=== PATIENT | male | born 1935 | race Caucasian/White ===

== ENCOUNTER 2019-07-08 05:45 | Inpatient (IN) ==
[2019-07-08] MEDS ORDERED: Ipratropium/Albuterol Neb 3 ML ONE (05:55)
[2019-07-08] MEDS ORDERED: Ipratropium/Albuterol Neb 3 ML IH ONE (06:00)
[2019-07-08] MEDS ORDERED: methylPREDNISolone 125 MG/2 ML VIAL IVP ONE (06:00)
[2019-07-08 06:51] LABS: Basophils # 0.1 K/mcL (0.0-0.2); Basophils % 0.9 %; Eosinophils # 0.1 K/mcL (0.0-0.6); Eosinophils % 0.8 %; Hematocrit 51.8 % (37.5-50.1); Immature Granulocytes % 1.3 % (0-4); Lymphocytes # 1.3 K/mcL (0.6-4.6); Lymphocytes % 12.7 %; Mean Corpuscular HGB Conc 32.8 g/dL (31.6-35.5); Mean Corpuscular Hemoglobin 33.1 pg (28.0-33.3); Mean Platelet Volume 9.3 fL (9.4-12.4); Monocytes # 0.8 K/mcL (0.0-1.3); Monocytes % 8.1 %; Neutrophils # 7.7 K/mcL (1.6-8.9); Platelet Count 226 K/mcL (140-400); Red Blood Count 5.13 M/mcL (4.19-5.50); Segmented Neutrophils % 76.2 %; White Blood Count 10.1 K/mcL (4.3-11.1)
[2019-07-08 07:17] LABS: Calcium 9.6 mg/dL (8.6-10.3); Potassium 5.6 mEq/L (3.5-5.1); Troponin I 0.32 ng/mL (< 0.04)
[2019-07-08 10:09] LABS: Prothrombin Time 11.2 Seconds (9.4-12.1)
[2019-07-08] MEDS ORDERED: *HR* Heparin 5,000 UNIT/ML VIAL IVP ONE (11:30)
[2019-07-08] MEDS ORDERED: *HR* Heparin 5,000 UNIT/ML VIAL IVP PRN ×2 (11:30)
[2019-07-08] MEDS ORDERED: *HR* Heparin 10,000 UNIT/10 ML VIAL IV PRN (11:55)
[2019-07-08] MEDS ORDERED: 0.9 % Sodium Chloride 250 ML IVC PRN (11:55)
[2019-07-08] MEDS ORDERED: Aspirin 81 MG TAB.CHEW PO ONE (11:56)
[2019-07-08] MEDS ORDERED: 0.9 % Sodium Chloride 1,000 ML PRIME SCH (12:00)
[2019-07-08 12:08] LABS: Activated Partial Thrombo Time 31.8 Seconds (26.0-36.0)
[2019-07-08 12:09] LABS: Hepatitis B Surface Antibody < 3.10 mIU/mL
[2019-07-08 12:19] LABS: Hepatitis B Surface Antigen Nonreactive (Nonreactive)
[2019-07-08] MEDS: Heparin 25,000 UNIT/250 ML D5W 25,000 UNIT/250 ML IV.SOLN IVC SCH (12:23)
[2019-07-08] MEDS ORDERED: Latanoprost 2.5 ML BOTTLE BOTH EYES SCH (17:00)
[2019-07-08] MEDS: Sucralfate 1 GM TABLET PO SCH ×2 (17:26→23:00)
[2019-07-08] MEDS ORDERED: carvediloL 25 MG TABLET PO SCH (21:00)
[2019-07-08] MEDS ORDERED: Perflutren Lipid Microsphere 1.3 ML in 0.9 % Sodium Chloride 8.7 ML IVP ONE (21:47)
[2019-07-08] MEDS: Latanoprost 2.5 ML BOTTLE BOTH EYES SCH (23:01)
[2019-07-09 00:41] LABS: Basophils % 0.5 %; Hematocrit 47.7 % (37.5-50.1); Hemoglobin 15.8 g/dL (12.9-16.9); Lymphocytes # 0.6 K/mcL (0.6-4.6); Mean Corpuscular HGB Conc 33.1 g/dL (31.6-35.5); Mean Corpuscular Hemoglobin 33.1 pg (28.0-33.3); Mean Platelet Volume 9.6 fL (9.4-12.4); Monocytes # 0.5 K/mcL (0.0-1.3); Monocytes % 7.4 %; Platelet Count 195 K/mcL (140-400); Red Blood Count 4.77 M/mcL (4.19-5.50); Segmented Neutrophils % 81.1 %; White Blood Count 6.2 K/mcL (4.3-11.1)
[2019-07-09] MEDS: Levalbuterol Neb 1.25 MG/3 ML IH SCH ×5 (00:54→21:58)
[2019-07-09 01:02] LABS: Potassium 5.4 mEq/L (3.5-5.1); Troponin I 0.62 ng/mL (< 0.04)
[2019-07-09 01:08] LABS: Calcium 9.1 mg/dL (8.6-10.3)
[2019-07-09] MEDS ORDERED: 0.9 % Sodium Chloride 250 ML IVC PRN (09:28)
[2019-07-09] MEDS: Sucralfate 1 GM TABLET PO SCH ×3 (09:30→17:34)
[2019-07-09] MEDS: carvediloL 25 MG TABLET PO SCH ×2 (09:35→17:34)
[2019-07-09] MEDS: Aspirin 81 MG TAB.CHEW PO SCH (09:35)
[2019-07-09 10:27] LABS: Acinetobacter baumannii by PCR Not Detected (Not Detect); Candida albicans by PCR Not Detected (Not Detect); Candida glabrata by PCR Not Detected (Not Detect); Candida krusei by PCR Not Detected (Not Detect); Candida parapsilosis by PCR Not Detected (Not Detect); Candida tropicalis by PCR Not Detected (Not Detect); Enterobacter cloacae Cmplx PCR Not Detected (Not Detect); Enterobacteriaceae by PCR Not Detected (Not Detect); Enterococcus by PCR Not Detected (Not Detect); Escherichia coli by PCR Not Detected (Not Detect); Klebsiella oxytoca by PCR Not Detected (Not Detect); Klebsiella pneumoniae by PCR Not Detected (Not Detect); Proteus by PCR Not Detected (Not Detect); Pseudomonas aeruginosa by PCR Not Detected (Not Detect); Serratia marcescens by PCR Not Detected (Not Detect); Staphylococcus aureus by PCR Not Detected (Not Detect); Staphylococcus by PCR DETECTED (Not Detect); Streptococcus agalactiae(B)PCR Not Detected (Not Detect); Streptococcus by PCR Not Detected (Not Detect); Streptococcus pneumoniae PCR Not Detected (Not Detect); Streptococcus pyogenes (A) PCR Not Detected (Not Detect); blaKPC Carbapenem-Resist Gene Not Detected (Not Detect); mecA Methicillin-Resist Gene DETECTED (Not Detect); vanA/B Vancomycin-Resist Genes Not Detected (Not Detect)
[2019-07-09] MEDS ORDERED: *HR* Dextrose 50 % in Water (Syg) 50 ML SYRINGE IVP PRN (12:10)
[2019-07-09] MEDS ORDERED: D5% in Water 1,000 ML IVC PRN (12:10)
[2019-07-09] MEDS ORDERED: Dextrose Gel 15 GM/37.5 ML TUBE PO PRN ×2 (12:10)
[2019-07-09] MEDS: Heparin 25,000 UNIT/250 ML D5W 25,000 UNIT/250 ML IV.SOLN IVC SCH (12:59)
[2019-07-09] MEDS: Insulin LISPRO 300 UNITS/3 ML VIAL SQ SCH ×2 (17:34→21:16)
[2019-07-09 19:00] LABS: Adenovirus Not Detected (Not Detect); Coronavirus 229E Not Detected (Not Detect); Coronavirus HKU1 Not Detected (Not Detect); Coronavirus NL63 Not Detected (Not Detect); Coronavirus OC43 Not Detected (Not Detect); Human Metapneumovirus Not Detected (Not Detect); Human Rhinovirus/Enterovirus Not Detected (Not Detect)
[2019-07-09 19:21] LABS: Bordetella Pertussis Not Detected (Not Detect); Chlamydophila pneumoniae Not Detected (Not Detect); Influenza A Subtype 2009 H1 DETECTED (Not Detect); Influenza B Not Detected (Not Detect); Mycoplasma pneumoniae Not Detected (Not Detect); Parainfluenza Virus 1 Not Detected (Not Detect); Parainfluenza Virus 2 Not Detected (Not Detect); Parainfluenza Virus 3 Not Detected (Not Detect); Parainfluenza Virus 4 Not Detected (Not Detect); Respiratory Syncytial Virus Not Detected (Not Detect)
[2019-07-09] MEDS: Diltiazem SR (12hr) 60 MG CAPSULE PO SCH (21:16)
[2019-07-09] MEDS: Insulin DETEMIR 100 UNIT/ML X5UNITS SQ SCH (21:16)
[2019-07-09] MEDS: Latanoprost 2.5 ML BOTTLE BOTH EYES SCH (21:18)
[2019-07-10 00:48] LABS: Hematocrit 47.3 % (37.5-50.1); Hemoglobin 15.6 g/dL (12.9-16.9); Mean Corpuscular Hemoglobin 33.3 pg (28.0-33.3); Mean Corpuscular Volume 101.1 fL (83.0-100.0); Mean Platelet Volume 9.7 fL (9.4-12.4); Platelet Count 186 K/mcL (140-400); Red Blood Count 4.68 M/mcL (4.19-5.50); Red Cell Distribution Width 14.2 % (11.5-14.5)
[2019-07-10 00:50] LABS: White Blood Count 9.8 K/mcL (4.3-11.1)
[2019-07-10 02:02] LABS: Calcium 8.7 mg/dL (8.6-10.3); Potassium 4.9 mEq/L (3.5-5.1)
[2019-07-10] MEDS: Levalbuterol Neb 1.25 MG/3 ML IH SCH ×4 (03:52→22:06)
[2019-07-10] MEDS: Aspirin 81 MG TAB.CHEW PO SCH (08:14)
[2019-07-10] MEDS: Insulin LISPRO 300 UNITS/3 ML VIAL SQ SCH ×4 (08:14→22:25)
[2019-07-10] MEDS: Sucralfate 1 GM TABLET PO SCH ×3 (08:14→16:59)
[2019-07-10] MEDS ORDERED: 0.9 % Sodium Chloride 250 ML IVC PRN (08:16)
[2019-07-10] MEDS: carvediloL 25 MG TABLET PO SCH ×2 (13:56→16:59)
[2019-07-10] MEDS: Heparin 25,000 UNIT/250 ML D5W 25,000 UNIT/250 ML IV.SOLN IVC SCH (17:00)
[2019-07-10] MEDS: Diltiazem SR (12hr) 60 MG CAPSULE PO SCH (23:26)
[2019-07-10] MEDS: Insulin DETEMIR 100 UNIT/ML X5UNITS SQ SCH (23:26)
[2019-07-10] MEDS: Latanoprost 2.5 ML BOTTLE BOTH EYES SCH (23:27)
[2019-07-11] MEDS: Levalbuterol Neb 1.25 MG/3 ML IH SCH ×4 (03:26→21:36)
[2019-07-11 04:39] LABS: Hematocrit 46.8 % (37.5-50.1); Hemoglobin 15.5 g/dL (12.9-16.9); Mean Corpuscular HGB Conc 33.1 g/dL (31.6-35.5); Mean Corpuscular Hemoglobin 33.3 pg (28.0-33.3); Mean Corpuscular Volume 100.6 fL (83.0-100.0); Mean Platelet Volume 10.1 fL (9.4-12.4); Platelet Count 161 K/mcL (140-400); Red Blood Count 4.65 M/mcL (4.19-5.50); Red Cell Distribution Width 14.3 % (11.5-14.5); White Blood Count 7.9 K/mcL (4.3-11.1)
[2019-07-11 04:58] LABS: Calcium 8.6 mg/dL (8.6-10.3); Potassium 4.3 mEq/L (3.5-5.1)
[2019-07-11] MEDS ORDERED: Perflutren Lipid Microsphere 1.3 ML in 0.9 % Sodium Chloride 8.7 ML IVP ONE (08:50)
[2019-07-11] MEDS: Aspirin 81 MG TAB.CHEW PO SCH (08:54)
[2019-07-11] MEDS: Insulin LISPRO 300 UNITS/3 ML VIAL SQ SCH ×4 (08:55→22:00)
[2019-07-11] MEDS: Sucralfate 1 GM TABLET PO SCH ×3 (08:55→17:17)
[2019-07-11] MEDS: carvediloL 25 MG TABLET PO SCH ×2 (08:55→17:17)
[2019-07-11] MEDS: *HR* Heparin 5,000 UNIT/ML VIAL SQ SCH (17:17)
[2019-07-11] MEDS: Insulin DETEMIR 100 UNIT/ML X5UNITS SQ SCH (22:00)
[2019-07-11] MEDS: Latanoprost 2.5 ML BOTTLE BOTH EYES SCH (22:00)
[2019-07-11] MEDS: Diltiazem SR (12hr) 60 MG CAPSULE PO SCH (22:00)
[2019-07-12] MEDS: Levalbuterol Neb 1.25 MG/3 ML IH SCH ×3 (03:40→16:05)
[2019-07-12 04:46] LABS: Hematocrit 46.8 % (37.5-50.1); Hemoglobin 15.3 g/dL (12.9-16.9); Mean Corpuscular HGB Conc 32.7 g/dL (31.6-35.5); Mean Corpuscular Hemoglobin 33.8 pg (28.0-33.3); Mean Corpuscular Volume 103.3 fL (83.0-100.0); Mean Platelet Volume 9.6 fL (9.4-12.4); Platelet Count 148 K/mcL (140-400); Red Blood Count 4.53 M/mcL (4.19-5.50); White Blood Count 6.7 K/mcL (4.3-11.1)
[2019-07-12 04:54] LABS: Calcium 8.7 mg/dL (8.6-10.3); Potassium 5.3 mEq/L (3.5-5.1)
[2019-07-12] MEDS: *HR* Heparin 5,000 UNIT/ML VIAL SQ SCH (06:17)
[2019-07-12] MEDS: Aspirin 81 MG TAB.CHEW PO SCH (08:05)
[2019-07-12] MEDS: carvediloL 25 MG TABLET PO SCH (08:05)
[2019-07-12] MEDS: Sucralfate 1 GM TABLET PO SCH ×2 (08:05→13:47)
[2019-07-12] MEDS: Insulin LISPRO 300 UNITS/3 ML VIAL SQ SCH ×2 (08:06→13:47)
[2019-07-12] MEDS ORDERED: *HR* Heparin 10,000 UNIT/10 ML VIAL IV PRN (08:18)
[2019-07-12] MEDS ORDERED: 0.9 % Sodium Chloride 250 ML IVC PRN (08:18)
[2019-07-12] MEDS ORDERED: 0.9 % Sodium Chloride 1,000 ML PRIME SCH (08:30)
[2019-07-12] MEDS ORDERED: Albumin 25% 25gram/100mL 25 GM/100 ML IV.SOLN IVPB STA (10:13)
[2019-07-12] MEDS ORDERED: Albumin 25% 25gram/100mL 25 GM/100 ML IV.SOLN ONE (10:16)
[2019-07-12] MEDS ORDERED: Ondansetron ODT 4 MG TAB.RAPDIS SL PRN (16:18)
[2019-07-12 16:40] VITALS: BP 101/61
== END 2019-07-12 17:36 | disposition home or self-care (01) | DRG 280 ==
LOC: 2ANU 05:45 → EMEROOARM 05:45 → SUATTDRO 11:28 → 2ANU 12:49
PROVIDERS: ADMIT Internal Medicine; ATTEND Internal Medicine

== ENCOUNTER 2019-08-06 22:01 | Inpatient (IN) ==
[2019-08-06] MEDS ORDERED: Ipratropium/Albuterol Neb 3 ML IH ONE (22:19)
[2019-08-06] MEDS ORDERED: methylPREDNISolone 125 MG/2 ML VIAL IVP ONE (22:19)
[2019-08-06 22:56] LABS: Basophils % 0.2 %; Eosinophils # 0.1 K/mcL (0.0-0.6); Eosinophils % 0.5 %; Hematocrit 46.2 % (37.5-50.1); Hemoglobin 15.3 g/dL (12.9-16.9); Lymphocytes # 2.4 K/mcL (0.6-4.6); Lymphocytes % 18.5 %; Mean Corpuscular HGB Conc 33.1 g/dL (31.6-35.5); Mean Corpuscular Hemoglobin 33.4 pg (28.0-33.3); Mean Corpuscular Volume 100.9 fL (83.0-100.0); Mean Platelet Volume 10.3 fL (9.4-12.4); Monocytes % 7.8 %; Neutrophils # 9.3 K/mcL (1.6-8.9); Platelet Count 167 K/mcL (140-400); Red Blood Count 4.58 M/mcL (4.19-5.50); Red Cell Distribution Width 14.4 % (11.5-14.5)
[2019-08-06 23:06] LABS: Prothrombin Time 10.8 Seconds (9.4-12.1)
[2019-08-06 23:08] LABS: Activated Partial Thrombo Time 28.3 Seconds (26.0-36.0)
[2019-08-06 23:20] LABS: Troponin I 0.17 ng/mL (< 0.04)
[2019-08-06 23:42] LABS: Albumin/Globulin Ratio 1.6 (1.1-2.2); Bilirubin,Total 0.4 mg/dL (0.3-1.0); Calcium 9.1 mg/dL (8.6-10.3); Globulin 2.5 g/dL (2.4-3.5); Potassium 6.2 mEq/L (3.5-5.1); Total Protein 6.5 g/dL (6.4-8.9)
[2019-08-07] MEDS ORDERED: Aspirin 81 MG TAB.CHEW PO ONE (01:00)
[2019-08-07] MEDS ORDERED: Piperacillin/Tazobactam 3.375 GM in 0.9 % Sodium Chloride Mini Bag 100 ML IVPB ONE (01:00)
[2019-08-07] MEDS ORDERED: Vancomycin 1,000 MG in D5% in Water 250 ML IVPB ONE (01:00)
[2019-08-07] MEDS ORDERED: cefTRIAXone 1,000 MG in 0.9 % Sodium Chloride Mini Bag 100 ML IVPB ONE (01:00)
[2019-08-07] MEDS ORDERED: *HR* OxyCODONE Immed Rel 5 MG TABLET PO ONE (01:16)
[2019-08-07] MEDS ORDERED: Insulin Human Regular 10 UNIT in 0.9 % Sodium Chloride 10 ML IV ONE (01:32)
[2019-08-07] MEDS ORDERED: *HR* Dextrose 50 % in Water (Syg) 50 ML SYRINGE IVP ONE (01:32)
[2019-08-07] MEDS ORDERED: *HR* Dextrose 50 % in Water (Syg) 50 ML SYRINGE ONE (01:56)
[2019-08-07] MEDS ORDERED: Calcium Gluconate 1gm/50mL 1 GM/50 ML BAG IVPB ONE ×2 (01:56→02:00)
[2019-08-07] MEDS ORDERED: Nitroglycerin 0.4 MG TAB.SUBL SL PRN (03:12)
[2019-08-07] MEDS ORDERED: *HR* Dextrose 50 % in Water (Syg) 50 ML SYRINGE IVP PRN (03:12)
[2019-08-07] MEDS ORDERED: Naloxone 0.4 MG/ML INJ IVP PRN (03:12)
[2019-08-07] MEDS ORDERED: Dextrose Gel 15 GM/37.5 ML TUBE PO PRN ×2 (03:12)
[2019-08-07] MEDS ORDERED: D5% in Water 1,000 ML IVC PRN (03:12)
[2019-08-07] MEDS ORDERED: 0.9 % Sodium Chloride 1,000 ML IVC SCH (03:15)
[2019-08-07] MEDS ORDERED: Insulin DETEMIR 100 UNIT/ML X5UNITS SQ SCH (03:18)
[2019-08-07] MEDS ORDERED: *HR* Heparin 5,000 UNIT/ML VIAL IVP PRN ×2 (03:21)
[2019-08-07] MEDS ORDERED: *HR* Heparin 5,000 UNIT/ML VIAL IVP ONE (03:21)
[2019-08-07] MEDS: Insulin DETEMIR 100 UNIT/ML X5UNITS SQ SCH ×2 (03:49→20:34)
[2019-08-07 04:05] LABS: ABG Base Excess -5 mEq/L (-2 to 3); ABG HCO3 23 mEq/L (21-27); ABG Oxygen Saturation 90 % (95-98); ABG PCO2 50 mmHg (35-45); ABG PH 7.27 pH Units (7.32-7.45); ABG PO2 68 mmHg (85-104); ABG TCO2 24 mEq/L (20-26)
[2019-08-07 04:15] LABS: Basophils % 0.2 %; Eosinophils % 0.1 %; Hematocrit 48.3 % (37.5-50.1); Hemoglobin 15.9 g/dL (12.9-16.9); Lymphocytes # 0.9 K/mcL (0.6-4.6); Lymphocytes % 5.7 %; Mean Corpuscular HGB Conc 32.9 g/dL (31.6-35.5); Mean Corpuscular Hemoglobin 33.3 pg (28.0-33.3); Mean Corpuscular Volume 101.3 fL (83.0-100.0); Mean Platelet Volume 10.3 fL (9.4-12.4); Monocytes # 0.2 K/mcL (0.0-1.3); Monocytes % 1.2 %; Neutrophils # 14.7 K/mcL (1.6-8.9); Platelet Count 184 K/mcL (140-400); Red Blood Count 4.77 M/mcL (4.19-5.50); Red Cell Distribution Width 14.3 % (11.5-14.5); Segmented Neutrophils % 91.8 %; White Blood Count 16.1 K/mcL (4.3-11.1)
[2019-08-07 04:31] LABS: Albumin 4.1 g/dL (3.5-5.7); Albumin/Globulin Ratio 1.6 (1.1-2.2); Bilirubin,Total 0.4 mg/dL (0.3-1.0); Calcium 9.4 mg/dL (8.6-10.3); Globulin 2.6 g/dL (2.4-3.5); Magnesium 2.8 mg/dL (1.6-2.6); Potassium 6.2 mEq/L (3.5-5.1); Total Protein 6.7 g/dL (6.4-8.9)
[2019-08-07] MEDS ORDERED: Isovue-370 500 ML BOTTLE IVP ONE (04:39)
[2019-08-07 04:44] LABS: Thyroid Stimulating Hormone 3.729 mcIU/mL (0.340-5.600)
[2019-08-07] MEDS ORDERED: Piperacillin/Tazobactam 3.375 GM in 0.9 % Sodium Chloride Mini Bag 100 ML IVPB SCH ×2 (05:00→07:00)
[2019-08-07] MEDS: DilTIAZem SR (12hr) 60 MG CAP.ER.12H PO SCH ×3 (05:31→20:34)
[2019-08-07] MEDS: Heparin 25,000 UNIT/250 ML D5W 25,000 UNIT/250 ML IV.SOLN IVC SCH (05:37)
[2019-08-07] MEDS ORDERED: *HR* Heparin 5,000 UNIT/ML VIAL SQ SCH (06:00)
[2019-08-07] MEDS ORDERED: 0.9 % Sodium Chloride 250 ML IVC PRN (07:06)
[2019-08-07] MEDS: Insulin LISPRO 300 UNITS/3 ML VIAL SQ SCH ×3 (07:14→16:43)
[2019-08-07] MEDS ORDERED: 0.9 % Sodium Chloride 1,000 ML PRIME SCH (07:15)
[2019-08-07] MEDS ORDERED: Aminoglycoside Consult 1 EACH MC ONE (12:44)
[2019-08-07] MEDS ORDERED: Perflutren Lipid Microsphere 1.3 ML in 0.9 % Sodium Chloride 8.7 ML IVP ONE (15:00)
[2019-08-07] MEDS: carvediloL 25 MG TABLET PO SCH ×2 (15:08→16:06)
[2019-08-07] MEDS: Aspirin 81 MG TAB.CHEW PO SCH (15:08)
[2019-08-07] MEDS: Sucralfate 1 GM TABLET PO SCH (15:08)
[2019-08-07 15:57] LABS: Calcium 8.7 mg/dL (8.6-10.3); Magnesium 2.1 mg/dL (1.6-2.6); Phosphorous 6.8 mg/dL (2.7-4.5); Potassium 4.9 mEq/L (3.5-5.1)
[2019-08-07] MEDS ORDERED: ISOVUE-370 200 ML INFUS..BTL ONE ×2 (16:11→17:37)
[2019-08-07] MEDS ORDERED: Heparin 1,000 UNITS/500 mL 500 ML ONE (16:11)
[2019-08-07] MEDS ORDERED: *HR* Heparin 10,000 UNIT/10 ML VIAL ONE (16:11)
[2019-08-07] MEDS ORDERED: 0.9 % Sodium Chloride 2,000 ML ONE (16:11)
[2019-08-07] MEDS ORDERED: Nitroglycerin 1,000 MCG/10 ML VIAL IV ONE (16:12)
[2019-08-07] MEDS ORDERED: *HR* FentaNYL (PF) 100 MCG/2 ML VIAL ONE (16:48)
[2019-08-07] MEDS ORDERED: *HR* Midazolam HCl 2 MG/2 ML VIAL ONE (16:48)
[2019-08-07] MEDS ORDERED: Tirofiban 12.5 MG/250ML 12.5 MG/250 ML BAG ONE (17:20)
[2019-08-07] MEDS ORDERED: Tirofiban 12.5 MG/250ML 12.5 MG/250 ML BAG IVC SCH (18:00)
[2019-08-07] MEDS: Piperacillin/Tazobactam 3.375 GM in 0.9 % Sodium Chloride Mini Bag 100 ML IVPB SCH (18:49)
[2019-08-08 05:22] LABS: Basophils % 0.1 %; Eosinophils % 0.1 %; Hematocrit 45.1 % (37.5-50.1); Hemoglobin 14.2 g/dL (12.9-16.9); Immature Granulocytes % 0.6 % (0-4); Lymphocytes # 1.7 K/mcL (0.6-4.6); Lymphocytes % 11.8 %; Mean Corpuscular HGB Conc 31.5 g/dL (31.6-35.5); Mean Corpuscular Hemoglobin 33.3 pg (28.0-33.3); Mean Corpuscular Volume 105.9 fL (83.0-100.0); Monocytes # 1.2 K/mcL (0.0-1.3); Monocytes % 7.9 %; Neutrophils # 11.7 K/mcL (1.6-8.9); Platelet Count 143 K/mcL (140-400); Red Blood Count 4.26 M/mcL (4.19-5.50); Red Cell Distribution Width 14.5 % (11.5-14.5); Segmented Neutrophils % 79.5 %; White Blood Count 14.7 K/mcL (4.3-11.1)
[2019-08-08 05:40] LABS: Calcium 8.9 mg/dL (8.6-10.3); Potassium 5.6 mEq/L (3.5-5.1)
[2019-08-08] MEDS: Insulin LISPRO 300 UNITS/3 ML VIAL SQ SCH ×3 (06:05→16:25)
[2019-08-08] MEDS: Piperacillin/Tazobactam 3.375 GM in 0.9 % Sodium Chloride Mini Bag 100 ML IVPB SCH ×2 (06:17→16:28)
[2019-08-08] MEDS ORDERED: 0.9 % Sodium Chloride 250 ML IVC PRN (06:59)
[2019-08-08] MEDS: DilTIAZem SR (12hr) 60 MG CAP.ER.12H PO SCH ×2 (07:41→21:49)
[2019-08-08] MEDS: Sucralfate 1 GM TABLET PO SCH ×3 (07:43→16:24)
[2019-08-08] MEDS: Aspirin 81 MG TAB.CHEW PO SCH (07:43)
[2019-08-08] MEDS: carvediloL 25 MG TABLET PO SCH ×2 (07:45→16:24)
[2019-08-08 08:43] LABS: Hepatitis B Surface Antibody < 3.10 mIU/mL
[2019-08-08 08:53] LABS: Hepatitis B Surface Antigen Nonreactive (Nonreactive)
[2019-08-08] MEDS ORDERED: 0.9 % Sodium Chloride 1,000 ML ONE (09:58)
[2019-08-08] MEDS: Azithromycin 250 MG TABLET PO SCH (11:37)
[2019-08-08 11:57] LABS: Prothrombin Time 10.8 Seconds (9.4-12.1)
[2019-08-08] MEDS: Insulin DETEMIR 100 UNIT/ML X5UNITS SQ SCH (21:04)
[2019-08-08] MEDS: Heparin 25,000 UNIT/250 ML D5W 25,000 UNIT/250 ML IV.SOLN IVC SCH (21:51)
[2019-08-09 04:13] LABS: Basophils % 0.2 %; Eosinophils # 0.2 K/mcL (0.0-0.6); Eosinophils % 1.6 %; Hematocrit 44.1 % (37.5-50.1); Hemoglobin 14.3 g/dL (12.9-16.9); Immature Granulocytes % 0.5 % (0-4); Lymphocytes # 2.4 K/mcL (0.6-4.6); Lymphocytes % 21.5 %; Mean Corpuscular HGB Conc 32.4 g/dL (31.6-35.5); Mean Corpuscular Hemoglobin 32.8 pg (28.0-33.3); Mean Corpuscular Volume 101.1 fL (83.0-100.0); Mean Platelet Volume 10.2 fL (9.4-12.4); Monocytes # 1.1 K/mcL (0.0-1.3); Monocytes % 10.3 %; Neutrophils # 7.3 K/mcL (1.6-8.9); Platelet Count 150 K/mcL (140-400); Red Blood Count 4.36 M/mcL (4.19-5.50); Red Cell Distribution Width 14.6 % (11.5-14.5); Segmented Neutrophils % 65.9 %
[2019-08-09 04:44] LABS: Calcium 8.6 mg/dL (8.6-10.3); Magnesium 2.3 mg/dL (1.6-2.6); Potassium 4.4 mEq/L (3.5-5.1)
[2019-08-09] MEDS: Piperacillin/Tazobactam 3.375 GM in 0.9 % Sodium Chloride Mini Bag 100 ML IVPB SCH ×2 (05:05→17:35)
[2019-08-09] MEDS ORDERED: 0.9 % Sodium Chloride 250 ML IVC PRN (07:05)
[2019-08-09] MEDS: Aspirin 81 MG TAB.CHEW PO SCH (08:18)
[2019-08-09] MEDS: Azithromycin 250 MG TABLET PO SCH (08:18)
[2019-08-09] MEDS: Sucralfate 1 GM TABLET PO SCH ×3 (08:18→17:33)
[2019-08-09] MEDS: carvediloL 25 MG TABLET PO SCH ×2 (08:19→17:33)
[2019-08-09] MEDS: Insulin LISPRO 300 UNITS/3 ML VIAL SQ SCH ×3 (08:20→17:33)
[2019-08-09] MEDS: DilTIAZem SR (12hr) 60 MG CAP.ER.12H PO SCH ×2 (08:22→22:03)
[2019-08-09] MEDS: Heparin 25,000 UNIT/250 ML D5W 25,000 UNIT/250 ML IV.SOLN IVC SCH (19:31)
[2019-08-09] MEDS: Insulin DETEMIR 100 UNIT/ML X5UNITS SQ SCH (22:02)
[2019-08-10 01:19] LABS: Calcium 8.9 mg/dL (8.6-10.3); Potassium 4.7 mEq/L (3.5-5.1)
[2019-08-10 01:25] LABS: Basophils % 0.3 %; Eosinophils # 0.2 K/mcL (0.0-0.6); Eosinophils % 1.9 %; Hematocrit 43.4 % (37.5-50.1); Hemoglobin 14.3 g/dL (12.9-16.9); Immature Granulocytes % 0.5 % (0-4); Lymphocytes % 19.8 %; Mean Corpuscular HGB Conc 32.9 g/dL (31.6-35.5); Mean Corpuscular Hemoglobin 33.3 pg (28.0-33.3); Mean Corpuscular Volume 101.2 fL (83.0-100.0); Mean Platelet Volume 10.6 fL (9.4-12.4); Monocytes % 10.4 %; Neutrophils # 6.6 K/mcL (1.6-8.9); Platelet Count 132 K/mcL (140-400); Red Blood Count 4.29 M/mcL (4.19-5.50); Red Cell Distribution Width 14.6 % (11.5-14.5); Segmented Neutrophils % 67.1 %; White Blood Count 9.9 K/mcL (4.3-11.1)
[2019-08-10] MEDS: Pantoprazole 40 MG in 0.9 % Sodium Chloride Mini Bag 100 ML IVC SCH ×2 (04:25→10:23)
[2019-08-10] MEDS: Piperacillin/Tazobactam 3.375 GM in 0.9 % Sodium Chloride Mini Bag 100 ML IVPB SCH (05:26)
[2019-08-10 05:58] LABS: Hematocrit 41.5 % (37.5-50.1); Hemoglobin 13.8 g/dL (12.9-16.9)
[2019-08-10] MEDS: Azithromycin 250 MG TABLET PO SCH (08:00)
[2019-08-10] MEDS: Aspirin 81 MG TAB.CHEW PO SCH (08:00)
[2019-08-10] MEDS: carvediloL 25 MG TABLET PO SCH (08:00)
[2019-08-10] MEDS: Insulin LISPRO 300 UNITS/3 ML VIAL SQ SCH ×2 (08:00→11:41)
[2019-08-10] MEDS: DilTIAZem SR (12hr) 60 MG CAP.ER.12H PO SCH (08:00)
[2019-08-10] MEDS: Sucralfate 1 GM TABLET PO SCH ×2 (08:00→11:40)
[2019-08-10 10:07] LABS: Hematocrit 40.1 % (37.5-50.1); Hemoglobin 13.3 g/dL (12.9-16.9)
[2019-08-10 10:11] LABS: Hepatitis Be Antibody NEGATIVE (Negative); Hepatitis Be Antigen NEGATIVE (Negative)
[2019-08-10 11:44] VITALS: BP 115/49
[2019-08-10 12:45] LABS: Adenovirus F 40/41 PCR Not detected (Not detect); Astrovirus PCR Not detected (Not detect); C.difficile Toxin A/B Gene PCR Not detected (Not detect); Campylobacter by PCR Not detected (Not detect); Cryptosporidium by PCR Not detected (Not detect); Cyclospora cayetanensis PCR Not detected (Not detect); E. coli O157 by PCR Not detected (Not detect); Entamoeba histolytica PCR Not detected (Not detect); Enteroaggregative E.coli(EAEC) Not detected (Not detect); Enteropathogenic E.coli(EPEC) Not detected (Not detect); Enterotoxigenic E.coli (ETEC) Not detected (Not detect); Giardia lamblia PCR Not detected (Not detect); Norovirus GI/GII PCR Not detected (Not detect); Plesiomonas shigelloides PCR Not detected (Not detect); Rotavirus A PCR Not detected (Not detect); Salmonella PCR Not detected (Not detect); Sapovirus PCR Not detected (Not detect); Shig/EnteroinvasiveE coli EIEC Not detected (Not detect); Shigalike tox-prod E coli STEC Not detected (Not detect); Vibrio PCR Not detected (Not detect); Vibrio cholerae PCR Not detected (Not detect); Yersinia enterocolitica PCR Not detected (Not detect)
[2019-08-10 13:22] LABS: Hematocrit 42.1 % (37.5-50.1); Hemoglobin 13.9 g/dL (12.9-16.9)
[2019-08-10] MEDS ORDERED: Pantoprazole 40 MG VIAL IVP SCH (18:00)
== END 2019-08-10 17:05 | disposition short-term general hospital (02) | DRG 853 ==
LOC: 3BNU 22:01 → EMEROOARM 22:01 → 3BNU 08-07 02:37 → SUATTDRO 08-07 10:47 → 2ANU 08-07 12:27
PROVIDERS: ADMIT Internal Medicine; ATTEND Internal Medicine